=== PATIENT | male | born 1980 | race Two or more races ===

== ENCOUNTER 2019-03-22 07:15 | Emergency (ER) | payer OTHER ==
[~2019-03-22] VITALS: Ht 180.3 cm; Wt 100.0 kg
[2019-03-22 08:42] VITALS: BP 114/78
[2019-03-22] MEDS ORDERED: IBUPROFEN 600 MG TABLET PO ONE (08:45)
== END 2019-03-22 09:16 | disposition home or self-care (01) ==
LOC: EMS 07:16
DX: S93.492A Sprain of other ligament of left ankle, initial encounter (principal); F17.210 Nicotine dependence, cigarettes, uncomplicated; F12.90 Cannabis use, unspecified, uncomplicated; X50.9XXA Other and unspecified overexertion or strenuous movements or postures, initial encounter; Y93.89 Activity, other specified; Y92.89 Other specified places as the place of occurrence of the external cause; Y99.8 Other external cause status

== ENCOUNTER 2019-08-31 12:05 | Emergency (ER) | payer MEDICAID, OTHER ==
[~2019-08-31] VITALS: Ht 180.3 cm; Wt 100.0 kg
[2019-08-31 12:08] VITALS: BP 127/84
[2019-08-31] MEDS ORDERED: IBUPROFEN 400 MG TABLET PO ONE (13:15)
[2019-08-31] MEDS ORDERED: ACETAMINOPHEN 500 MG TABLET PO ONE (14:15)
== END 2019-08-31 14:33 | disposition left against medical advice (07) ==
LOC: EMS 12:06
DX: S62.512A Displaced fracture of proximal phalanx of left thumb, initial encounter for closed fracture (principal); F12.90 Cannabis use, unspecified, uncomplicated; F17.210 Nicotine dependence, cigarettes, uncomplicated; V00.131A Fall from skateboard, initial encounter; Y93.51 Activity, roller skating (inline) and skateboarding; Y92.89 Other specified places as the place of occurrence of the external cause; Y99.8 Other external cause status
CPT/HCPCS: 99406

== ENCOUNTER 2020-10-23 19:10 | Emergency (ER) | payer MEDICAID, OTHER ==
[~2020-10-23] VITALS: Ht 180.3 cm; Wt 100.0 kg
[2020-10-23] MEDS ORDERED: KETOROLAC TROMETHAMINE 30 MG/ML VIAL IM ONE (20:45)
[2020-10-23 21:40] VITALS: BP 138/72
== END 2020-10-23 21:50 | disposition home or self-care (01) ==
LOC: EMS 19:10
DX: S83.91XA Sprain of unspecified site of right knee, initial encounter (principal); S83.92XA Sprain of unspecified site of left knee, initial encounter; S70.212A Abrasion, left hip, initial encounter; S40.212A Abrasion of left shoulder, initial encounter; F17.210 Nicotine dependence, cigarettes, uncomplicated; F12.90 Cannabis use, unspecified, uncomplicated; V49.9XXA Car occupant (driver) (passenger) injured in unspecified traffic accident, initial encounter; Y93.89 Activity, other specified; Y92.89 Other specified places as the place of occurrence of the external cause; Y99.8 Other external cause status
CPT/HCPCS: 29505; 72170; 73030; 73562 ×2; 96372; 99284; J1885

== ENCOUNTER 2021-02-27 14:41 | Emergency (ER) | payer OTHER ==
[~2021-02-27] VITALS: Ht 180.3 cm; Wt 97.7 kg
[2021-02-27] MEDS ORDERED: PHENY100 PO (14:45)
[2021-02-27] MEDS ORDERED: IBUPROFEN 800 MG TABLET PO ONE (15:45)
[2021-02-27] MEDS ORDERED: DOXYCYCLINE HYCLATE 100 MG TABLET PO ONE (15:45)
[2021-02-27 16:50] VITALS: BP 138/76
== END 2021-02-27 17:15 | disposition home or self-care (01) ==
LOC: EMS 14:57
DX: S90.01XA Contusion of right ankle, initial encounter (principal); L03.317 Cellulitis of buttock; F17.210 Nicotine dependence, cigarettes, uncomplicated; F12.90 Cannabis use, unspecified, uncomplicated; W22.8XXA Striking against or struck by other objects, initial encounter; Y93.89 Activity, other specified; Y92.89 Other specified places as the place of occurrence of the external cause; Y99.8 Other external cause status
CPT/HCPCS: 96372; 99283